=== PATIENT | female | born 1960 | race Caucasian/White ===

== ENCOUNTER → 2017-01-22 | Outpatient (REF) | payer SELFPAY | LOC: M LAB REF 13:16 | PROVIDERS: ATTEND Physician Assistant | DX: N39.0 Urinary tract infection, site not specified (principal) ==

== ENCOUNTER 2024-05-27 00:27 | Inpatient (IN) | payer MEDICARE, SELFPAY ==
[~2024-05-27] VITALS: Ht 170.2 cm; Wt 75.0 kg
[2024-05-27] MEDS: NS (Normal Saline) 0.9% 1,000 ML IV ONE (01:45)
[2024-05-27 02:22] LABS: BASO # 0.1 10^3/uL (0.0-0.2); BASO % 0.9 % (0.0-1.0); EOS # 0.2 10^3/uL (0.0-0.5); HEMATOCRIT 38.7 % (36.0-47.0); HEMOGLOBIN 12.5 g/dl (12.0-15.5); LYMPH # 2.2 10^3/uL (1.5-5.0); LYMPH % 28.6 % (24.0-44.0); MEAN CORPUSCULAR HEMOGLOBIN 29.1 pg (27.0-33.0); MEAN CORPUSCULAR HGB CONC 32.3 g/dl (32.0-36.5); MEAN CORPUSCULAR VOLUME 90.2 fl (80.0-96.0); MONO # 0.8 10^3/uL (0.0-0.8); MONO % 10.7 % (2.0-8.0); NEUTROPHILS # 4.4 10^3/uL (1.5-8.5); NEUTROPHILS % 56.9 % (36.0-66.0); PLATELET COUNT, AUTOMATED 270 10^3/uL (150-450); RED BLOOD COUNT 4.29 10^6/uL (4.00-5.40); WHITE BLOOD COUNT 7.7 10^3/uL (4.0-10.0)
[2024-05-27 02:37] LABS: AMPHETAMINES LEVEL URINE NEGATIVE (NEGATIVE); BARBITURATES URINE NEGATIVE (NEGATIVE); CANNABINOIDS URINE NEGATIVE (NEGATIVE); COCAINE METABOLITE URINE NEGATIVE (NEGATIVE); METHADONE URINE NEGATIVE (NEGATIVE); OPIATES URINE NEGATIVE (NEGATIVE); PHENCYCLIDINE URINE NEGATIVE (NEGATIVE)
[2024-05-27 02:40] LABS: BENZODIAZEPINES URINE POSITIVE (NEGATIVE); ETHYL ALCOHOL (ETHANOL) 0.234 % (0.000-0.010)
[2024-05-27 02:42] LABS: SALICYLATE LEVEL 7.6 MG/DL (<30)
[2024-05-27 02:46] LABS: ALKALINE PHOSPHATASE 69 U/L (35-104); ALT/SGPT 18 U/L (7.0-40); AST/SGOT 41 U/L (<34); BILIRUBIN,DIRECT < 0.1 MG/DL (<0.4); BILIRUBIN,TOTAL 0.2 MG/DL (0.3-1.2); BLOOD UREA NITROGEN 16 MG/DL (9-23); CALCIUM LEVEL 9.8 MG/DL (8.3-10.6); CARBON DIOXIDE LEVEL 25 MMOL/L (20-31); CHLORIDE LEVEL 104 MMOL/L (98-107); CPK CREATINE PHOSPHOKINASE 91 U/L (34-145); CREATININE FOR GFR 0.67 MG/DL (0.55-1.30); GLOMERULAR FILTRATION RATE > 60.0 (>45); GLUCOSE, FASTING 103 MG/DL (74-106); POTASSIUM SERUM 4.5 MMOL/L (3.5-5.1); SODIUM LEVEL 139 MMOL/L (136-145); THYROID STIMULATING HORMONE 9.634 uIU/ML (0.55-4.78); TOTAL PROTEIN 8.1 G/DL (5.7-8.2)
[2024-05-27] MEDS: ALPRAZolam 0.25 MG TAB PO ONE (06:07)
[2024-05-27] MEDS ORDERED: ISOVUE-370 76% 100ML VIAL As Ordered ONE (09:20)
[2024-05-27] MEDS ORDERED: ACETAMINOPHEN 325 MG TAB PO PRN (09:50)
[2024-05-27] MEDS ORDERED: MOM 30ML SUSPENSION UDC PO PRN (09:50)
[2024-05-27] MEDS ORDERED: MAALOX 30 ML SUSP *UDC PO PRN (09:50)
[2024-05-27] MEDS: FOLIC ACID 1MG TAB PO SCH (10:16)
[2024-05-27] MEDS: MULTIVITAMINS/MINERALS THERAP 1 TAB PO SCH (10:17)
[2024-05-27] MEDS: IBUPROFEN 400MG TAB PO ONE (10:17)
[2024-05-27] MEDS: THIAMINE 100 MG TAB PO SCH (10:18)
[2024-05-27] MEDS ORDERED: AMLO1TAB25 PO (10:47)
[2024-05-27] MEDS ORDERED: DIVA500T9 PO (10:47)
[2024-05-27] MEDS ORDERED: ALPR1TAB3 PO (10:47)
[2024-05-27] MEDS ORDERED: ZOLP10TA2 PO (10:47)
[2024-05-27] MEDS ORDERED: ZOLO100T PO (10:47)
[2024-05-27] MEDS ORDERED: HOME MED LIST COMPLETE! XX SCH (10:50)
[2024-05-27 11:37] VITALS: BP 125/89
[2024-05-27 11:40] VITALS: BP 125/89; TEMP 97; O2SAT 95
[2024-05-27] MEDS: LORazepam 2 MG TAB PO PRN (11:42)
[2024-05-27 13:55] VITALS: BP 120/78; TEMP 98.2; O2SAT 97
[2024-05-27 15:55] VITALS: BP 123/76
[2024-05-27] MEDS: IBUPROFEN 400MG TAB PO PRN (17:11)
[2024-05-27 20:00] VITALS: BP 122/80; TEMP 98.1; O2SAT 98
[2024-05-27] MEDS: traZODone 50 MG TAB PO PRN (20:28)
[2024-05-27 20:44] VITALS: BP 122/80
[2024-05-28] VITALS (7 sets, daily range): BP systolic 116–147; BP diastolic 76–84; TEMP 97.8–98.9; O2SAT 95–99
[2024-05-28] MEDS: diphenhydrAMINE 25MG CAP PO PRN (04:59)
[2024-05-28] MEDS: FLUBLOK(EGGFREE) TRIVAL(24-25) VACCINE PF 0.5ML SYRINGE 18YRS & OLDER IM.IMMUN ONE (08:34)
[2024-05-28] MEDS: ALPRAZolam 0.5 MG TAB PO PRN (10:18)
[2024-05-28] MEDS: SERTRALINE 100 MG TAB PO SCH (10:19)
[2024-05-28] MEDS: DIVALPROEX 500MG *ER* TAB PO SCH (10:20)
[2024-05-28] MEDS: PREVNAR-20 VACCINE 0.5ML SYRINGE IM.IMMUN ONE (11:26)
[2024-05-28] MEDS: zolPIDEM TARTRATE 5 MG TAB PO PRN (20:19)
[2024-05-29 06:00] VITALS: BP 132/82
[2024-05-29 06:44] VITALS: BP 132/82; TEMP 97.7; O2SAT 94
[2024-05-29 08:40] VITALS: BP 135/90
[2024-05-29] MEDS: DOCUSATE SODIUM 100MG CAPSULE PO SCH (11:09)
[2024-05-29 14:00] VITALS: BP 110/66
[2024-05-29 15:17] VITALS: BP 110/66; TEMP 98.1; O2SAT 93
[2024-05-29 22:00] VITALS: BP 106/72; TEMP 97.7; O2SAT 94
[2024-05-30 06:44] VITALS: BP 119/67; TEMP 98.4; O2SAT 94
[2024-05-30 09:01] VITALS: BP 142/86
[2024-05-30 13:48] VITALS: BP 142/96; TEMP 97.5
[2024-05-30 13:49] VITALS: BP 142/96
[2024-05-30 15:47] VITALS: BP 160/85; TEMP 97.9; O2SAT 95
[2024-05-31 06:25] VITALS: BP 150/85; TEMP 97; O2SAT 96
[2024-05-31 08:19] VITALS: BP 152/88
[2024-05-31 16:42] VITALS: BP 151/92; TEMP 98.6; O2SAT 96
[2024-06-01] VITALS: BP 122/84
[2024-06-01 06:19] VITALS: BP 124/70; TEMP 97.7; O2SAT 95
[2024-06-01 08:00] VITALS: BP 122/72
[2024-06-01 08:14] VITALS: BP 125/84
== END 2024-06-01 17:47 | disposition home or self-care (01) | DRG 881 ==
LOC: M ED 00:27 → EDBD 00:27 → M ED INP 10:37 → M PSY 11:14
PROVIDERS: ADMIT Psychiatry & Neurology Psychiatry; ATTEND Psychiatry & Neurology Psychiatry
DX: F32.9 Major depressive disorder, single episode, unspecified (principal); F41.1 Generalized anxiety disorder; Z56.0 Unemployment, unspecified; Z62.810 Personal history of physical and sexual abuse in childhood; Z79.899 Other long term (current) drug therapy; I10 Essential (primary) hypertension; Z91.148 Patient's other noncompliance with medication regimen for other reason

== ENCOUNTER 2024-06-06 10:02 | Emergency (ER) | payer MEDICARE ==
[~2024-06-06] VITALS: Ht 170.2 cm; Wt 75.0 kg
[~2024-06-06 10:02] MED LIST: ALPR1TAB3 PO; AMLO1TAB25 PO; DIVA500T9 PO; ZOLO100T PO; ZOLP10TA2 PO
[2024-06-06 12:50] VITALS: BP 173/102
[2024-06-06] MEDS: DIVALPROEX 500 MG TAB PO ONE (12:50)
[2024-06-06] MEDS: IBUPROFEN 600MG TAB PO ONE (13:25)
[2024-06-06] MEDS ORDERED: LORazepam 2 MG/ML 1ML VIAL As Ordered ONE (15:02)
[2024-06-06] MEDS: LORazepam 2 MG/ML 1ML VIAL IV STA (15:11)
[2024-06-06] MEDS: VALPROATE SOD INJ 500 MG in D5W 50 ML IV ONE (15:17)
[2024-06-06] MEDS ORDERED: DIVA500T9 PO (17:50)
[2024-06-06] MEDS ORDERED: AMLO1TAB25 PO (17:50)
[2024-06-06] MEDS: NS (Normal Saline) 0.9% 1,000 ML IV ONE (22:39)
[2024-06-06 23:04] LABS: BASO # 0.1 10^3/uL (0.0-0.2); BASO % 0.4 % (0.0-1.0); EOS # 0.1 10^3/uL (0.0-0.5); EOS % 0.9 % (0.0-3.0); HEMATOCRIT 33.4 % (36.0-47.0); HEMOGLOBIN 11.1 g/dl (12.0-15.5); LYMPH # 2.6 10^3/uL (1.5-5.0); LYMPH % 22.5 % (24.0-44.0); MEAN CORPUSCULAR HEMOGLOBIN 29.5 pg (27.0-33.0); MEAN CORPUSCULAR HGB CONC 33.2 g/dl (32.0-36.5); MEAN CORPUSCULAR VOLUME 88.8 fl (80.0-96.0); MONO # 1.8 10^3/uL (0.0-0.8); MONO % 15.6 % (2.0-8.0); NEUTROPHILS # 6.9 10^3/uL (1.5-8.5); NEUTROPHILS % 60.3 % (36.0-66.0); PLATELET COUNT, AUTOMATED 333 10^3/uL (150-450); RED BLOOD COUNT 3.76 10^6/uL (4.00-5.40); WHITE BLOOD COUNT 11.4 10^3/uL (4.0-10.0)
[2024-06-06 23:29] LABS: BLOOD UREA NITROGEN 11 MG/DL (9-23); CARBON DIOXIDE LEVEL 26 MMOL/L (20-31); CHLORIDE LEVEL 101 MMOL/L (98-107); CREATININE FOR GFR 0.81 MG/DL (0.55-1.30); GLOMERULAR FILTRATION RATE > 60.0 (>45); GLUCOSE, FASTING 102 MG/DL (74-106); POTASSIUM SERUM 3.5 MMOL/L (3.5-5.1); SODIUM LEVEL 141 MMOL/L (136-145)
[2024-06-07 02:25] VITALS: BP 132/93; TEMP 97.4; O2SAT 99
== END 2024-06-07 02:25 | disposition home or self-care (01) ==
LOC: M ED 10:02 → EDBD 10:02 → M ED 06-07 02:25
DX: I95.1 Orthostatic hypotension (principal); G40.909 Epilepsy, unspecified, not intractable, without status epilepticus; S00.83XA Contusion of other part of head, initial encounter; Y04.0XXA Assault by unarmed brawl or fight, initial encounter; Y92.9 Unspecified place or not applicable; Y93.9 Activity, unspecified; Y99.9 Unspecified external cause status; K57.30 Diverticulosis of large intestine without perforation or abscess without bleeding; R19.7 Diarrhea, unspecified; J44.9 Chronic obstructive pulmonary disease, unspecified; F41.9 Anxiety disorder, unspecified; F32.A Depression, unspecified; F10.10 Alcohol abuse, uncomplicated
CPT/HCPCS: 70450; 70486; 72125; 80048; 85025; 87507; 96361; 96365; 96375; 99285; J2060

== ENCOUNTER 2024-12-04 16:46 | Emergency (ER) | payer MEDICARE ==
[~2024-12-04] VITALS: Ht 170.2 cm; Wt 59.1 kg
[~2024-12-04 16:46] MED LIST changes: +ALPR0.5T7 PO; +XANA0.5T PO
[2024-12-04 17:34] LABS: BASO # 0.1 10^3/uL (0.0-0.2); BASO % 0.6 % (0.0-1.0); EOS # 0.1 10^3/uL (0.0-0.5); EOS % 0.4 % (0.0-3.0); LYMPH # 2.6 10^3/uL (1.5-5.0); LYMPH % 19.6 % (24.0-44.0); MONO # 0.9 10^3/uL (0.0-0.8); MONO % 6.8 % (2.0-8.0); NEUTROPHILS # 9.6 10^3/uL (1.5-8.5); NEUTROPHILS % 72.1 % (36.0-66.0); PLATELET COUNT, AUTOMATED 345 10^3/uL (150-450)
[2024-12-04] MEDS: ASPIRIN 81 MG CHEWABLE TABLET PO ONE (17:48)
[2024-12-04] MEDS: NITROGLYCERIN 0.4 MG SUBL TABLET SL PRN (17:48)
[2024-12-04 17:51] LABS: CALCIUM LEVEL 9.4 MG/DL (8.3-10.6); CARBON DIOXIDE LEVEL 23.0 MMOL/L (20-31); CHLORIDE LEVEL 102.0 MMOL/L (98-107); CK-MB VALUE MASS 1.2 NG/ML (<3.6); CPK CREATINE PHOSPHOKINASE 35.0 U/L (34-145); CREATININE FOR GFR 0.9 MG/DL (0.55-1.30); GLOMERULAR FILTRATION RATE 70.5 (>45); MB/CK RELATIVE INDEX 3.42 (< OR =4); POTASSIUM SERUM 3.4 MMOL/L (3.5-5.1); SODIUM LEVEL 140.0 MMOL/L (136-145)
[2024-12-04] MEDS ORDERED: OMEP40CA4 PO (17:55)
[2024-12-04 18:08] LABS: ALT/SGPT 12.0 U/L (7.0-40); AST/SGOT 20.0 U/L (<34)
[2024-12-04] MEDS ORDERED: ISOVUE-370 76% 100 ML VIAL As Ordered ONE (19:12)
[2024-12-04 19:15] LABS: CK-MB VALUE MASS 1.7 NG/ML (<3.6)
[2024-12-04 19:19] LABS: CPK CREATINE PHOSPHOKINASE 40.0 U/L (34-145); MB/CK RELATIVE INDEX 4.25 (< OR =4)
[2024-12-04] MEDS ORDERED: AMLO1TAB25 PO (20:16)
[2024-12-04 20:36] VITALS: BP 177/123
[2024-12-04] MEDS: amLODIPine 10 MG TAB PO ONE (20:36)
[2024-12-04 20:48] VITALS: BP 164/101; TEMP 98.2; O2SAT 97
== END 2024-12-04 20:55 | disposition left against medical advice (07) ==
LOC: M ED 16:46
DX: R07.9 Chest pain, unspecified (principal); I10 Essential (primary) hypertension; I45.10 Unspecified right bundle-branch block; R00.0 Tachycardia, unspecified; I45.81 Long QT syndrome; J44.9 Chronic obstructive pulmonary disease, unspecified; M54.50 Low back pain, unspecified; Z88.5 Allergy status to narcotic agent; Z79.899 Other long term (current) drug therapy
CPT/HCPCS: 36415; 71275; 80048; 80076; 82550; 82553; 83690; 84484; 85025; 93005; 93041; 94760; 99285; Q9967

== ENCOUNTER 2025-02-23 11:08 | Emergency (ER) | payer MEDICARE ==
[~2025-02-23] VITALS: Ht 170.2 cm; Wt 62.6 kg
[~2025-02-23 11:08] MED LIST changes: +OMEP40CA4 PO; +ZOLP10TA11 PO; -ZOLP10TA2 PO
[2025-02-23] MEDS: ALPRAZolam 0.5 MG TAB PO ONE (13:25)
[2025-02-23 13:44] LABS: BASO # 0.1 10^3/uL (0.0-0.2); BASO % 0.6 % (0.0-1.0); EOS # 0.0 10^3/uL (0.0-0.5); EOS % 0.2 % (0.0-3.0); LYMPH # 1.5 10^3/uL (1.5-5.0); LYMPH % 15.6 % (24.0-44.0); MONO # 0.5 10^3/uL (0.0-0.8); MONO % 5.5 % (2.0-8.0); NEUTROPHILS # 7.5 10^3/uL (1.5-8.5); NEUTROPHILS % 77.6 % (36.0-66.0); PLATELET COUNT, AUTOMATED 347 10^3/uL (150-450)
[2025-02-23 14:21] LABS: CALCIUM LEVEL 10.3 MG/DL (8.3-10.6); CARBON DIOXIDE LEVEL 26 MMOL/L (20-31); CHLORIDE LEVEL 103 MMOL/L (98-107); CREATININE FOR GFR 0.61 MG/DL (0.55-1.30); GLOMERULAR FILTRATION RATE > 90.0 (>45); POTASSIUM SERUM 4.2 MMOL/L (3.5-5.1); SODIUM LEVEL 142 MMOL/L (136-145)
[2025-02-23 15:05] VITALS: BP 138/98; TEMP 97.4; O2SAT 97
== END 2025-02-23 15:17 | disposition home or self-care (01) ==
LOC: M ED 11:08
DX: I10 Essential (primary) hypertension (principal); F41.9 Anxiety disorder, unspecified; I45.10 Unspecified right bundle-branch block; I45.81 Long QT syndrome; J44.9 Chronic obstructive pulmonary disease, unspecified; Z88.5 Allergy status to narcotic agent; Z79.899 Other long term (current) drug therapy

== ENCOUNTER → 2025-03-06 | Outpatient (REF) | payer MEDICARE ==
[2025-03-06 18:28] LABS: FREE T4 0.83 NG/DL (0.89-1.76); THYROGLOBULIN ANTIBODY 23.0 U/ML (<60.0)
[2025-03-06 18:29] LABS: THYROID PEROXIDASE ANTIBODY 30.0 U/ML (<60.0)
== END ==
LOC: M LAB REF 16:57
PROVIDERS: ATTEND Student in an Organized Health Care Education/Training Program
DX: R79.89 Other specified abnormal findings of blood chemistry (principal); Z79.899 Other long term (current) drug therapy

== ENCOUNTER → 2025-04-23 | Outpatient (CLI) | payer MEDICARE | LOC: M WHC 08:56 | PROVIDERS: ATTEND Student in an Organized Health Care Education/Training Program | DX: Z12.31 Encounter for screening mammogram for malignant neoplasm of breast (principal); R92.323 Mammographic fibroglandular density, bilateral breasts; R92.1 Mammographic calcification found on diagnostic imaging of breast ==

== ENCOUNTER → 2025-04-26 | Outpatient (REF) | payer MEDICARE ==
[2025-04-26 18:04] LABS: FREE T4 0.92 NG/DL (0.89-1.76)
== END ==
LOC: M LAB REF 16:17
PROVIDERS: ATTEND Student in an Organized Health Care Education/Training Program
DX: R79.89 Other specified abnormal findings of blood chemistry (principal); Z79.899 Other long term (current) drug therapy